=== PATIENT | male | born 1970 | race Caucasian/White ===

== ENCOUNTER 2018-08-28 14:22 | Emergency (ER) | payer MEDICARE ==
[2018-08-28 14:36] VITALS: BP 134/90
[2018-08-28] MEDS ORDERED: KETOROLAC TROMETHAMINE 60 MG/2 ML SDV IM ONE (14:50)
--- NOTE | 2018-08-28 14:57 | ER Document Report ---
ED General - General Chief Complaint: Back Pain Stated Complaint: LOWER BACK PAIN Time Seen by Provider: 08/28/18 14:43 Notes: 48-year-old male here with complaints of left lower back pain that has been chronic in nature for many years however has worsened over the past 1 month. The pain radiates down the back of his left buttock leg and into the foot. He has been taking Zanaflex and methadone for the pain. Pain is worse with standing and with sitting down. Pain is improved with elevating his left side so that there is no pressure on his left buttock. He has not had any numbness tingling incontinence retention weakness fevers chills. He has an appointment tomorrow to see his spinal surgeon and to receive directed-therapy steroid injections but states the pain was so unbearable he had to come in to the ER today. TRAVEL OUTSIDE OF THE [place] IN LAST 30 DAYS: No - Related Data Allergies/Adverse Reactions: No Known Allergies Allergy (Verified 08/28/18 14:23) Past Medical History - Social History Smoking Status: Current Some Day Smoker Chew tobacco use (# tins/day): No Frequency of alcohol use: Occasional Drug Abuse: None Family History: Reviewed & Not Pertinent Patient has suicidal ideation: No Patient has homicidal ideation: No Renal/ Medical History: Denies: Hx Peritoneal Dialysis Past Surgical History: Reports: Hx Appendectomy, Hx Orthopedic Surgery - C6,C7 rupture with fusion front and back. Review of Systems - Review of Systems Notes: See history of present illness for pertinent positive review of systems; otherwise all review of systems have been reviewed and are negative Physical Exam - Vital signs Vitals: Temp Pulse Resp BP Pulse Ox 98.6 F 116 H 18 134/90 H 97 08/28/18 14:33 08/28/18 14:33 08/28/18 14:33 08/28/18 14:33 08/28/18 14:33 - Notes Notes: PHYSICAL EXAMINATION: GENERAL: Well-appearing and in no acute distress. HEAD: Atraumatic, normocephalic. EYES: Pupils equal round and reactive to light, extraocular movements intact, sclera anicteric, conjunctiva are normal. ENT: nares patent, oropharynx clear without exudates. Moist mucous membranes. NECK: Normal range of motion, supple without lymphadenopathy LUNGS: CTAB and equal. No wheezes rales or rhonchi. HEART: Not tachycardic on my exam, regular rhythm without murmurs ABDOMEN: Soft, no tenderness. No facial grimacing/wincing upon palpation. No guarding, no rebound. EXTREMITIES: Normal range of motion, no pitting edema. No cyanosis. BACK: There is mild left paraspinal lumbar muscle TTP at L4-L5 with mild left sciatic groove TTP NEUROLOGICAL: Cranial nerves grossly intact. Normal sensory/motor exams BLEs. PSYCH: Normal mood, normal affect. SKIN: Warm, Dry, normal turgor, no rashes or lesions noted Course - Re-evaluation Re-evalutation: 08/28/18 15:01 MEDICAL DECISION MAKING: Concern for herniated disc (patient states this was seen on his 08/18 MRI) muscle strain cauda equina Less likely cauda equina given absence of red flag symptoms and a normal neurological exam Will give a dose of Toradol here and prescription meloxicam Soma as patient is on a chronic pain contract Instructed follow-up PCP and/or spinal surgeon next day or few Patient understands and agrees to the plan of care - Vital Signs Vital signs: Temp Pulse Resp BP Pulse Ox 98.6 F 116 H 18 134/90 H 97 08/28/18 14:33 08/28/18 14:33 08/28/18 14:33 08/28/18 14:33 08/28/18 14:33 Discharge - Discharge Clinical Impression: Sciatica, left side Condition: Good Disposition: HOME, SELF-CARE Additional Instructions: Use the prescribed medication as needed for your symptoms. Do not take the XANAFLEX while you are taking the SOMA. You may continue taking the METHADONE. You were seen in the emergency department at [facility]. If you were given any sedating medications, be sure not to operate heavy machinery (example - driving) and be sure you are not too sedated to walk appropriately. Please followup with your primary physician in the next few days for further management/evaluation. Please return to the emergency department for worsening of symptoms or any symptom that you deem to be concerning or life-threatening. Thank you for allowing us to be part of your care. Prescriptions: Carisoprodol [Soma 350 Mg Tablet] 350 mg PO TIDP PRN #20 tablet PRN Reason: Meloxicam [Mobic] 15 mg PO DAILYP PRN #10 tablet PRN Reason:
== END 2018-08-28 15:16 | disposition home or self-care (01) ==
LOC: ER 14:22
DX: M54.32 Sciatica, left side (principal); F17.200 Nicotine dependence, unspecified, uncomplicated; Z98.1 Arthrodesis status
CPT/HCPCS: 99283; 96372; J1885

== ENCOUNTER 2018-11-02 18:01 | Emergency (ER) | payer MEDICARE ==
--- NOTE | 2018-11-02 19:01 | RADIOLOGY REPORT (SQ) ---
EXAM DESCRIPTION: FOOT RIGHT COMPLETE COMPLETED DATE/TIME: 11/02/2018 6:39 pm REASON FOR STUDY: pain and injury COMPARISON: None. NUMBER OF VIEWS: Three views. TECHNIQUE: AP, lateral and oblique radiographic images acquired of the right foot. LIMITATIONS: None. FINDINGS: MINERALIZATION: Normal. BONES: There is a minimally displaced transverse fracture of the distal fibula. Incidental note is m james of calcaneal enthesopathy. JOINTS: No effusions. SOFT TISSUES: No soft tissue swelling. No foreign body. OTHER: No other significant finding. IMPRESSION: Minimally displaced transverse fracture of the distal fibula. TECHNICAL DOCUMENTATION: JOB ID: [id number] [employer]- All Rights Reserved Reading location - IP/workstation name: [email or web address]
--- NOTE | 2018-11-02 19:03 | RADIOLOGY REPORT (SQ) ---
EXAM DESCRIPTION: ANKLE RIGHT COMPLETE COMPLETED DATE/TIME: 11/02/2018 6:39 pm REASON FOR STUDY: pain and injury COMPARISON: Left foot radiographs performed 11/02/2018 NUMBER OF VIEWS: Three views. TECHNIQUE: AP, lateral, and oblique radiographic images acquired of the right ankle. LIMITATIONS: None. FINDINGS: MINERALIZATION: Normal. BONES: There is a minimally displaced transverse fracture of the distal fibula which is better charac terized on comparison foot radiographs. Incidental note is made of calcaneal enthesopathy. JOINTS: No effusions. SOFT TISSUES: No soft tissue swelling. No foreign body. OTHER: No other significant finding. IMPRESSION: Minimally displaced transverse fracture of the distal fibula better characterized on com parison foot radiographs TECHNICAL DOCUMENTATION: JOB ID: [id number] [employer]- All Rights Reserved Reading location - IP/workstation name: [email or web address]
--- NOTE | 2018-11-02 19:39 | ER Document Report ---
ED Extremity Problem, Lower - General Chief Complaint: Ankle Injury Stated Complaint: ANKLE INJURY Time Seen by Provider: 11/02/18 19:24 Primary Care Provider: [facility] [Provider Group] - Follow up as needed NICOLLE SORTO MD [Primary Care Provider] - Follow up as needed Mode of Arrival: Wheelchair Information source: Patient Notes: 48-year-old female presents to ED for complaint of right ankle pain and swelling. He states he was messing around with tennis records and twisted his ankle and heard a pop about 5 PM this evening. He states he stepped sideways and rolled his ankle. Patient is alert oriented respirations regular and unlabored speaking in full sentences. He is on pain management for chronic pain to his back. He is on methadone. TRAVEL OUTSIDE OF THE [place] IN LAST 30 DAYS: No - HPI Patient complains to provider of: Injury, Pain, Swelling Location: Ankle Occurred: This evening Where: Home, Outdoors Onset/Duration: Sudden, Persistent Quality of pain: Achy, Throbbing Severity: Moderate Pain Level: 3 Context: Twisted Recent injury: Yes Associated symptoms: Painful ambulation Exacerbated by: Hanging down, Movement, Walking Relieved by: Elevation, Ice, Rest - Related Data Allergies/Adverse Reactions: No Known Allergies Allergy (Verified 08/28/18 14:23) Past Medical History - General Information source: Patient - Social History Smoking Status: Former Smoker - Uses vapor Frequency of alcohol use: Social Lives with: Family Family History: Reviewed & Not Pertinent Patient has suicidal ideation: No Patient has homicidal ideation: No - Past Medical History Cardiac Medical History: Reports: Hx Hypertension Pulmonary Medical History: Reports: None EENT Medical History: Reports: None Neurological Medical History: Reports: None Endocrine Medical History: Reports: None Renal/ Medical History: Reports: None Malignancy Medical History: Reports None GI Medical History: Reports: None Musculoskeletal Medical History: Reports Hx Arthritis, Reports Hx Musculoskeletal Deformity, Reports Hx Musculoskeletal Trauma Skin Medical History: Reports None Psychiatric Medical History: Reports: None Traumatic Medical History: Reports: Hx Fractures - Both arms all fingers all toes, Hx Spine Fracture - C6-7, states had ruptured disc which caused fracture, fusion done Infectious Medical History: Reports: None Past Surgical History: Reports: Hx Appendectomy, Hx Orthopedic Surgery - C6,C7 rupture with fusion front and back. Review of Systems - Review of Systems Constitutional: No symptoms reported EENT: No symptoms reported Cardiovascular: No symptoms reported Respiratory: No symptoms reported Gastrointestinal: No symptoms reported Genitourinary: No symptoms reported Male Genitourinary: No symptoms reported Musculoskeletal: Ankle swelling Skin: No symptoms reported Hematologic/Lymphatic: No symptoms reported Neurological/Psychological: No symptoms reported -: Yes All other systems reviewed and negative Physical Exam - Vital signs Vitals: Temp Pulse Resp BP Pulse Ox 98.2 F 104 H 18 155/73 H 100 11/02/18 18:15 11/02/18 18:15 11/02/18 18:15 11/02/18 18:15 11/02/18 18:15 Interpretation: Normal - General General appearance: Appears well, Alert - HEENT Head: Normocephalic, Atraumatic Eyes: Normal Pupils: PERRL - Respiratory Respiratory status: No respiratory distress Chest status: Nontender Breath sounds: Normal Chest palpation: Normal - Cardiovascular Rhythm: Regular Heart sounds: Normal auscultation Murmur: No - Abdominal Inspection: Normal Distension: No distension Bowel sounds: Normal Tenderness: Nontender Organomegaly: No organomegaly - Back Back: Normal, Nontender - Extremities General upper extremity: Normal inspection, Nontender, Normal color, Normal ROM, Normal temperature General lower extremity: Normal ROM, Normal temperature, Normal weight bearing. No: Priya's sign Ankle: Tender, Ecchymosis, Edema. No: Abrasion, Deformity, Instability, Laceration, Limited ROM, Positive Raphael's test, Unable to bear weight - Neurological Neuro grossly intact: Yes Cognition: Normal Orientation: AAOx4 Ellyn Coma Scale Eye Opening: Spontaneous [place]lyn Coma Scale Verbal: Oriented Ellyn Coma Scale Motor: Obeys Commands [place] Coma Scale Total: 15 Speech: Normal Motor strength normal: LUE, RUE, LLE, RLE Sensory: Normal - Psychological Associated symptoms: Normal affect, Normal mood - Skin Skin Temperature: Warm Skin Moisture: Dry Skin Color: Normal Course - Vital Signs Vital signs: Temp Pulse Resp BP Pulse Ox 98.2 F 104 H 18 155/73 H 100 11/02/18 18:15 11/02/18 18:15 11/02/18 18:15 11/02/18 18:15 11/02/18 18:15 - Diagnostic Test Radiology reviewed: Image reviewed, Reports reviewed Procedures - Immobilization Right Ankle Time completed: 20:27 Pre-Proc Neuro Vasc Exam: Normal Immobilizer type: Posterior ankle Performed by: PCT Post-Proc Neuro Vasc Exam: Normal Alignment checked and good: Yes Discharge - Discharge Clinical Impression: Fracture of distal fibula Qualifiers: Encounter type: initial encounter Fracture type: closed Fracture morphology: unspecified fracture morphology Laterality: right Qualified Code(s): S82.831A - Other fracture of upper and lower end of right fibula, initial encounter for closed fracture Condition: Stable Disposition: HOME, SELF-CARE Additional Instructions: Fibular distal Fracture You have a fracture of the distal portion of the fibula (the smaller bone in the lower leg). This fracture is not serious. As the tibia (larger bone) is not injured, you'll probably be able to walk well within a few days. Complete healing takes about four weeks. Treatment is based on the symptoms caused by the fracture. You only need the degree of protection necessary to prevent pain as you use the leg. The amount of immobilization required for a fibular fracture varies from person to person. After the initial period of ice, elevation, and rest, you may require only a wrap, or you could require a walking boot or cast. Be sure to follow up as instructed, as the treatment plan may change based on your symptoms. Call the doctor or return at once if there is severe pain or swelling, numbness, or inability to move the foot or toes. SPLINT PRECAUTIONS: A splint has been placed. This will protect the area while healing begins. Your problem does NOT normally require a cast. It MUST, however, be held still! Keep the splint on ALL THE TIME until instructed to remove it by the doctor. As you begin to use the area, be careful. You shouldn't do anything which causes discomfort -- you may disturb the injury even with the splint in place. After the initial period of rest and elevation, if splint does not prevent pain when you move, come back. You may require placement of a different splint, or a cast. If there is unexpected severe pain, or numbness, discoloration, or swelling beyond the splint, you should return at once. If you feel that the splint has broken or become loose, come back. USE OF CRUTCHES: The doctor has recommended that you not bear weight at this time. You will need to use crutches. Adjust the crutches so the tops come to about two inches under the armpit while you are standing upright. Use your hands -- not your armpits -- to support your weight. To get into a chair, support yourself with one crutch on the injured side. Hold the chair with the other hand, then lower yourself while putting all your weight on the good leg. Going up stairs is `good leg up, step up, then bring up crutches and bad leg.' Down stairs is `bad leg and crutches down, then bring good leg down.' If you develop numbness or swelling in an arm or hand, you are using the crutches incorrectly. Return if you are having any problems with the crutches. ICE & ELEVATION: Apply ice packs frequently against the painful area. Many different schedules are recommended, such as "20 minutes on, 20 minutes off" or "one hour ice, two hours rest." If you need to work, you may need to go longer between ice treatments. You should plan to have the area ice packed AT LEAST one-fourth of the time. The ice should be applied over the wrap, tape, or splint, or over a layer of cloth -- not directly against the skin. Some ice bags have a built-in cloth and can be put directly on the skin. Your injured part should be elevated as much as possible over the next 48 hours. Try to keep the injury above the level of the heart. Avoid use of the injured area. Elevation and rest will decrease the swelling. USE OF [id number] IBUPROFEN: Ibuprofen (Advil, Nuprin, Medipren, Motrin IB) is a medication for fever and pain control. In addition, it has anti- inflammatory effects which may be beneficial, especially in the treatment of injuries. It's best to take ibuprofen with food. Persons with ulcer disease or allergy to aspirin should notify their physician of this before taking ibupr ofen. Ibuprofen can be given every four to six hours, for a total of four doses daily. Age Pain or fever dose Antiinflammatory dose 6-8 yr 200 mg (1 tab) 200 mg (1 tab) 9-11 yr 200 mg (1 tab) 200-400 mg (1-2 tab) 11-14 yr 200-400 mg (1-2 tab) 400 mg (2 tab) 15-adult 400 mg (2 tab) 600 mg (3 tab) FOLLOW-UP CARE: If you have been referred to a physician for follow-up care, call the physicians office for an appointment as you were instructed or within the next two days. If you experience worsening or a significant change in your symptoms, notify the physician immediately or return to the Emergency Department at any time for re-evaluation. Forms: Elevated Blood Pressure, Smoking Cessation Education Referrals: NICOLLE SORTO MD [Primary Care Provider] - Follow up as needed [facility] [Provider Group] - Follow up as needed
[2018-11-02 20:30] VITALS: BP 160/74
== END 2018-11-02 20:33 | disposition home or self-care (01) ==
LOC: ER 18:01
PROC: 2W3QX1Z Immobilization of Right Lower Leg using Splint (ICD-10-PCS; principal; 2018-11-02)
DX: S82.831A Other fracture of upper and lower end of right fibula, initial encounter for closed fracture (principal); M25.571 Pain in right ankle and joints of right foot; M79.89 Other specified soft tissue disorders; X50.1XXA Overexertion from prolonged static or awkward postures, initial encounter; Z79.899 Other long term (current) drug therapy; Z87.891 Personal history of nicotine dependence; I10 Essential (primary) hypertension
CPT/HCPCS: 99283

== ENCOUNTER → 2020-06-03 | Outpatient (CLI) | payer MEDICARE ==
[2020-06-03 08:03] LABS: ABSOLUTE BASOPHILS # (AUTO) 0.1 10^3/uL (0.0-0.2); ABSOLUTE EOSINOPHILS # (AUTO) 0.1 10^3/uL (0.0-0.6); ABSOLUTE MONOCYTES (AUTO) 0.4 10^3/uL (0.1-1.4); ABSOLUTE NEUT (AUTO) 1.5 10^3/uL (1.7-8.2); BASOPHILS % (AUTO) 1.3 % (0-2); HEMATOCRIT 27.7 % (37.9-51.0); HEMOGLOBIN 9.9 g/dL (13.5-17.0); LYMPHOCYTES % (AUTO) 49.6 % (13-45); MEAN CORPUSCULAR HEMOGLOBIN 34.1 pg (27.0-33.4); MEAN CORPUSCULAR HGB CONC 35.6 g/dL (32.0-36.0); MEAN CORPUSCULAR VOLUME 96 fl (80-97); MONOCYTES % (AUTO) 9.1 % (3-13); PLATELET COUNT 342 10^3/uL (150-450); RED BLOOD COUNT 2.89 10^6/uL (4.35-5.55); RED CELL DISTRIBUTION WIDTH 14.1 % (11.5-14.0); TOTAL CELLS COUNTED % (AUTO) 100 %
[2020-06-03 08:22] LABS: ALKALINE PHOSPHATASE 87 U/L (38-126); ANION GAP 11 (5-19); ASPARTATE AMINO TRANSFERASE 29 U/L (17-59); BILIRUBIN,DIRECT 0.3 mg/dL (0.0-0.4); BILIRUBIN,TOTAL 0.5 mg/dL (0.2-1.3); BLOOD UREA NITROGEN 14 mg/dL (7-20); CALCIUM 9.5 mg/dL (8.4-10.2); CARBON DIOXIDE 24 mmol/L (22-30); CHLORIDE 82 mmol/L (98-107); CHOLESTEROL 182.55 mg/dL (0-200); GLUCOSE 95 mg/dL (75-110); TOTAL PROTEIN 6.2 g/dL (6.3-8.2); TRIGLYCERIDES 146 mg/dL (<150)
[2020-06-03 08:33] LABS: DIRECT LDL 66 mg/dL (<100)
[2020-06-03 08:39] LABS: FREE T4 (FREE THYROXINE) 0.93 ng/dL (0.78-2.19)
[2020-06-03 08:53] LABS: THYROID STIMULATING HORMONE 3.82 uIU/mL (0.47-4.68)
--- NOTE | 2020-06-03 22:03 | EKG REPORT ---
SEVERITY:- NORMAL ECG - SINUS RHYTHM : Confirmed by: Chrissy Knapp 03-Jun-2020 22:03:09
== END ==
LOC: OD 07:11
PROVIDERS: ATTEND Physician Assistant
DX: E78.00 Pure hypercholesterolemia, unspecified (principal); R42 Dizziness and giddiness; R00.2 Palpitations; R41.3 Other amnesia; R53.1 Weakness; R19.7 Diarrhea, unspecified; R63.4 Abnormal weight loss; Z79.899 Other long term (current) drug therapy
CPT/HCPCS: 36415; 80053; 80061; 83735; 84439; 84443; 85025; 93005; 93010